=== PATIENT | male | born 1945 | race Caucasian/White ===

== ENCOUNTER 2023-07-23 03:39 | Inpatient (IN) | payer SELFPAY ==
[~2023-07-23] VITALS: Ht 177.8 cm; Wt 78.2 kg
[2023-07-23] MEDS ORDERED: Morphine 4 MG/ML VIAL IV PRN ×3 (04:00→12:00)
[2023-07-23 04:13] LABS: BASO % 0.3 % (0.0-2.0); EOS # 0.1 K/mm3 (0.0-0.7); EOS % 1.3 % (0.0-4.0); GRAN # 9.3 K/mm3 (1.4-6.5); GRAN % 84.3 % (42.2-75.2); HEMOGLOBIN 12.5 g/dl (13.5-18.0); LYMPH # 0.7 K/mm3 (1.2-3.4); LYMPH % 6.5 % (20.0-51.0); MEAN CELL VOLUME 90 fl (80.0-100.0); MEAN CORPUSCULAR HEMOGLOBIN 32 pg (27-31); MEAN CORPUSCULAR HGB CONC 36 g/dl (33.0-37.0); MEAN PLATELET VOLUME 10.2 fl (7.4-10.4); MONO # 0.8 K/mm3 (0.1-0.6); MONO % 7.2 % (1.7-9.3); PLATELET COUNT 143 K/mm3 (130-400); REDCELL DISTRIBUTION WIDTH-CV 14.5 % (11.5-14.5)
[2023-07-23 04:17] LABS: HEMATOCRIT 35.2 % (42.0-52.0)
[2023-07-23 04:25] LABS: TROPONIN-I < 0.010 ng/mL (0.00-0.033)
[2023-07-23 04:30] LABS: ALANINE AMINOTRANSFERASE 314 U/L (0-55); ALKALINE PHOSPHATASE 94 U/L (40-150); ANION GAP 9 mmol/L (7-16); AST,SGOT 550 U/L (5-34); BILIRUBIN,TOTAL 2.9 mg/dL (0.2-1.2); BLOOD UREA NITROGEN 30 mg/dL (8-26); CALCIUM 9.4 mg/dL (8.4-10.2); CHLORIDE 108 mEq/L (98-107); CREATININE, serum 0.79 mg/dL (0.72-1.25); GLUCOSE 132 mg/dL (70-99); LIPASE 4290 U/L (8-78); POTASSIUM 4.1 mEq/L (3.5-4.5); SODIUM 140 mEq/L (136-145); TOTAL PROTEIN 6.3 g/dl (6.2-8.1)
[2023-07-23] MEDS ORDERED: Iohexol 300 - 100 ML VIAL IV ONE (04:45)
[2023-07-23] MEDS ORDERED: NS 50 ML IV ONE (04:51)
[2023-07-23] MEDS ORDERED: NS 1,000 ML IV ONE ×2 (05:30→09:53)
[2023-07-23] MEDS ORDERED: NS 1,000 ML IV SCH ×2 (08:00→12:00)
[2023-07-23] MEDS ORDERED: Acetaminophen 325 MG TAB PO SCH (08:00)
[2023-07-23 10:28] VITALS: BP 124/70; PULSE 83; TEMP 98
[2023-07-23] MEDS ORDERED: Ondansetron 4 MG/2 ML VIAL IV PRN (12:00)
[2023-07-24] MEDS ORDERED: Ondansetron 4 MG/2 ML VIAL IV PRN (11:45)
[2023-07-24] MEDS ORDERED: Loperamide 2 MG CAP PO PRN (14:15)
[2023-07-24 17:55] VITALS: BP_SYST 159
[2023-07-24 20:18] VITALS: BP 134/67; PULSE 57; TEMP 98.5
[2023-07-24] MEDS ORDERED: Carvedilol 3.125 MG TAB PO SCH (20:36)
--- NOTE | 2023-07-24 21:20 | NUR ---
PT IN BED, INDEPENDENT IN ROOM. HAS IVF TO RAC INFUSING WITHOUT PROBLEM. DENIES ABD PAIN. HAS TOLERATED DIET WITHOUT N/V. HS MEDS GIVEN.
[2023-07-24 21:25] VITALS: BP_SYST 114
[2023-07-24 23:39] VITALS: BP 114/54; PULSE 59; TEMP 97.9
[2023-07-25 00:26] VITALS: BP_SYST 114
[2023-07-25 03:39] VITALS: BP 144/70; PULSE 55; TEMP 97.4
--- NOTE | 2023-07-25 04:00 | NUR ---
PT RESTING IN BED. IVF CONTINUE. NO REQUEST FOR PAIN MEDS THIS SHIFT.
[2023-07-25 04:44] VITALS: BP_SYST 144
--- NOTE | 2023-07-25 07:58 | NUR ---
On 07/24/23 at 120 pm, generator worker met with patient and patient's sister, Olga, P# [phone], to discuss discharge planning. Patient lives alone in [place]. PCP is Dr. Cody, pharmacy is [facility] in [facility]. Insurance is Medicare. Patient is concerned about his medical bills as he is on fixed income. Patient wanted to establish a DPOA-HC. SW assisted with this. Patient appointed Olga and Fernie (brother in law) P# [phone]. Aide and SW witnessed patient signature. SW made copy and placed one in chart and provide patient with original and several copies. Patient expressed he has a DNR but does not have a copy of it on him. His sister is going to attempt to bring this to the hospital prior to patient's discharge but wanted to ensure staff knew that was he has a DNR. No DME at this time, reports to be independent with ADLS. Patient is able to transport himself to and from appointments. Patient would like to return home at time of discharge. Discharge plan: Home
[2023-07-25 08:20] VITALS: BP 137/78; PULSE 58; TEMP 97.7
[2023-07-25 09:00] VITALS: BP_SYST 137
[2023-07-25] MEDS ORDERED: Ezetimibe 10 MG TAB PO SCH (09:00)
--- NOTE | 2023-07-25 10:17 | NUR ---
PT UP WALKING AROUND ROOM INDEPENDENTLY. ALERTAND ORIENTEDX4. NO PAIN AT THIS TIME. PT TOLERATING BREAKFAST AND ASKING WHEN HE CAN GO HOME. ASSESSED AND GAVE MORNING MEDS. NO OTHER COMPLAINTS AT THIS TIME. CALL LIGHT WITHIN REACH.
[2023-07-25] MEDS ORDERED: COREG 3.123.125 MG/T PO (11:30)
[2023-07-25] MEDS ORDERED: ZETIA 10MG TAB10 MG PO (11:31)
[2023-07-25] MEDS ORDERED: PLAVIX 75MG TAB75 MG PO (11:31)
[2023-07-25] MEDS ORDERED: CELEBREX 200MG200 MG PO (11:31)
[2023-07-25] MEDS ORDERED: PROSCAR 5MG5 MG PO (11:32)
[2023-07-25] MEDS ORDERED: DIFLUCAN150 MG PO (11:32)
[2023-07-25] MEDS ORDERED: MOBIC15 MG PO (11:33)
[2023-07-25] MEDS ORDERED: MYCOGEN CR 15GM TP (11:34)
[2023-07-25] MEDS ORDERED: CRESTOR20 MG PO (11:35)
[2023-07-25] MEDS ORDERED: FLOMAX 0.40.4 MG/CAP PO (11:35)
--- NOTE | 2023-07-25 11:35 | NUR ---
grab jack worker was notified patient wanted to meet with adoption social worker. SW met with patient, patient had questions about financial assistance. SW provided information on [facility] and also contacted financial counseling to meet with patient as he may qualify for Medicaid. SW left a voicemail for [facility] to speak with patient about potential waivers for him. JASMYN attended interdisciplinary clinical rounding with Dr. Christopher. Patient should be able to return home today. Discharge plan: Home
[2023-07-25] MEDS ORDERED: THE MEDICINE S200 M2 PO (11:36)
[2023-07-25] MEDS ORDERED: IRON TABLETS325 MG PO (11:37)
[2023-07-25] MEDS ORDERED: VITREXYL CAP1000 MCG PO (11:37)
[2023-07-25] MEDS ORDERED: MAGNESIUM250 M1 PO (11:38)
[2023-07-25] MEDS ORDERED: IMODIUM 2MG CAPS2 MG PO (11:38)
[2023-07-25] MEDS ORDERED: VITAMIN B125000 MCG PO (11:39)
[2023-07-25] MEDS ORDERED: OMEGA-3 FISH1000 MG PO (11:39)
[2023-07-25] MEDS ORDERED: VITAMIN K2100 MCG PO (11:40)
[2023-07-25] MEDS ORDERED: ZINC7.5 MG PO (11:41)
[2023-07-25 11:56] VITALS: BP 149/73; PULSE 51; TEMP 97.6
--- NOTE | 2023-07-25 12:29 | NUR ---
PT PRIMARY CARE PROVIDER CALLED. OFFICE DID NOT ANSWER.
--- NOTE | 2023-07-25 13:24 | NUR ---
Reviewed discharge instructions with pt and spouse. Pt verbalized understanding. Attempted to make follow up appointment with no answer. [facility] by the end of the day to make appointment. INT removed from right AC.
--- NOTE | 2023-07-27 18:52 | NUR ---
Due to downtime, documentation on EMR completed post-care by LANDEN SNEED RN; refer to scanned downtime paper documentation for full care documentation. Downtime from (07-23-23) to (07-25-23).
--- NOTE | 2023-07-27 19:34 | NUR ---
Due to downtime, documentation on EMR completed post-care by LANDEN SNEED RN; refer to scanned downtime paper documentation for full care documentation. Downtime from 07/23/23 to 07/25/23 .
[2023-07-29 08:00] VITALS: BP 134/83; PULSE 86
== END 2023-07-25 13:10 | disposition home or self-care (01) | DRG 439 ==
LOC: COL.ER 03:39 → SURG 10:28
PROVIDERS: Emergency Medicine; ADMIT Internal Medicine
DX: K85.90 Acute pancreatitis without necrosis or infection, unspecified (principal); K81.0 Acute cholecystitis; Z95.1 Presence of aortocoronary bypass graft
CPT/HCPCS: J2270; J2543; J7030; Q9967